=== PATIENT | male | born 1985 | race African-American/Black ===

== ENCOUNTER 2018-02-18 17:37 | Inpatient (IN) ==
[2018-02-18] MEDS ORDERED: Sod Chloride 0.9% Inj 1,000 ML IV.SIG ONE (18:42)
--- NOTE | 2018-02-18 18:46 | ED ---
HPI General Chief complaint: Dental/Oral Stated complaint: Heat Cramp/tooth pain Time Seen by Provider: 02/18/18 18:38 History of Present Illness HPI narrative: 33-year-old male here for evaluation of dental pain/abscess and possible dehydration. The patient noticed the pain and swelling over his right lower molar a couple of days ago. Pain is moderate, constant, worse with palpation. No difficulty swallowing or breathing. He believes he may have had a fever yesterday. 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 He had 2 episodes of vomiting today which were nonbloody/nonbilious. Last bowel movement was yesterday and was normal. No diarrhea. No abdominal pain. Related Data Home Medications Medication Instructions Recorded Confirmed No Known Home Medications 02/18/18 02/18/18 Allergies Allergy/AdvReac Type Severity Reaction Status Date / Time No Known Allergies Allergy Verified 02/18/18 18:12 Review of Systems ROS: all other systems reviewed are negative PMFSH Medical History Medical History Patient denies medical problems (Acute) Surgical History Surgical History No history of previous surgery (Acute) Social History Social History Substance History: No History of Abuse Second Hand Smoke Exposure: Yes Smoking Status: Current every day smoker Tobacco Type: Cigarettes How Often Do You Have a Drink Containing Alcohol: 4 or more times a week Recent Travel in [facility] within the Last 8 Weeks: No Recent Out of Country Travel within the Last 8 Weeks: No Immunization History Tetanus Immunization: <5 Years Exam Narrative Exam Narrative: GENERAL: Well-developed, well-nourished, comfortable, no apparent distress. SKIN: Focused skin assessment warm/dry. HEAD: Atraumatic. Normocephalic. EYES: Pupils equal and round. No scleral icterus. No injection or drainage. ENT: No nasal bleeding or discharge. Mucous membranes pink and dry. Tooth #8 is fractured which the patient states happened several years ago and he is to have a cap for it. Around the base of tooth #35 there is an area of swelling laterally with induration, no fluctuance. Normal pharynx. No drooling or stridor. NECK: Trachea midline. No JVD. CARDIOVASCULAR: Regular rate and rhythm. RESPIRATORY: No accessory muscle use. Clear to auscultation. Breath sounds equal bilaterally. GASTROINTESTINAL: Abdomen soft, non-tender, nondistended. MUSCULOSKELETAL: No obvious deformities. No clubbing. No cyanosis. No edema. NEUROLOGICAL: Awake and alert. No obvious cranial nerve deficits. Motor grossly within normal limits. Normal speech. PSYCHIATRIC: Appropriate mood and affect; insight and judgment normal. Course Initial Documented Vital Signs Temperature 98.7 F 02/18/18 17:41 Pulse Rate 61 02/18/18 17:41 Respiratory Rate 14 02/18/18 17:41 Blood Pressure 161/86 H 02/18/18 17:41 Pulse Oximetry 99 02/18/18 17:41 Last Documented Vital Signs Temperature 98.7 F 02/18/18 17:41 Pulse Rate 61 02/18/18 17:41 Respiratory Rate 14 02/18/18 17:41 Blood Pressure 161/86 H 02/18/18 17:41 Pulse Oximetry 99 02/18/18 17:41 Medical Decision Making MDM Narrative Medical decision making narrative: Vital signs reviewed. CBC is unremarkable. CMP is remarkable for creatinine 1.63. CK-MB is 1684. Patient was provided a liter of normal saline IV bolus. Patient reports working as a truck technician for the past 2 days, and is complaining of feeling dehydrated with generalized muscle cramps. It has been extremely hot these last 2 days. He denies illicit drug use. Denies crack or cocaine use. Patient will be given another liter of normal saline IV bolus and started on normal saline at 125 cc/h. He will be admitted for dehydration/acute renal failure/rhabdomyolysis. He will also be started on IV clindamycin for dental infection. Case discussed with hospitalist Dr. Romo who will admit the patient to her service. Medical Screen Exam Complete: Yes Emergency Medical Condition: Yes Differential Diagnosis Differential Diagnosis: Dehydration, rhabdomyolysis, metabolic abnormality, dental infection Lab Data Result diagrams: 02/18/18 18:46 02/18/18 18:46 Lab Results 02/18/18 02/18/18 02/18/18 Range/Units 18:46 18:46 18:55 WBC 9.8 (4.0-11.0) th/mm3 RBC 5.05 (4.50-5.90) mil/mm3 Hgb 15.3 (13.0-17.0) gm/dL Hct 43.0 (39.0-51.0) % MCV 85.3 (80.0-100.0) fL MCH 30.2 (27.0-34.0) pg MCHC 35.5 (32.0-36.0) % RDW 14.5 (11.6-17.2) % Plt Count 294 (150-450) th/mm3 MPV 7.7 (7.0-11.0) fL Neut % (Auto) 73.7 H (16.0-70.0) % Lymph % (Auto) 12.8 (9.0-44.0) % [place] % (Auto) 12.6 H (0.0-8.0) % Eos % (Auto) 0.2 (0.0-4.0) % Baso % (Auto) 0.7 (0.0-2.0) % Neut # (Auto) 7.2 (1.8-7.7) th/mm3 Lymph # (Auto) 1.3 (1.0-4.8) th/mm3 [place] # (Auto) 1.2 H (0.0-0.9) th/mm3 Eos # (Auto) 0.0 (0.0-0.4) th/mm3 Baso # (Auto) 0.1 (0.0-0.2) th/mm3 WBC Differential . Differential Comment Auto diff final Sodium 135 L (136-145) meq/L Potassium 3.9 (3.5-5.1) meq/L Chloride 102 (98-107) meq/L Carbon Dioxide 21.7 (21.0-32.0) meq/L Anion Gap 11 (5-15) meq/L BUN 14 (7-18) mg/dL Creatinine 1.63 H (0.60-1.30) mg/dL Estimated GFR 59 L (>89) mL/min Random Glucose 78 (74-106) mg/dL Calcium 10.0 (8.5-10.1) mg/dL Total Bilirubin 0.4 (0.2-1.0) mg/dL AST 44 H (15-37) U/L ALT 39 (12-78) U/L Alkaline Phosphatase 97 (45-117) U/L Total Creatine Kinase 1684 H (39-308) U/L CK-MB (CK-2) 3.2 (0.5-3.6) ng/mL CK-MB (CK-2) % 0.2 (0.0-4.0) % Total Protein 9.5 H (6.4-8.2) g/dL Albumin 4.7 (3.4-5.0) g/dL Lipase 129 (73-393) U/L Urine Color Straw (Yellw/Straw) Urine Clarity Clear (Clear) Urine pH 5.0 (5.0-8.5) Ur Specific [place] 1.008 (1.002-1.035) Urine Protein Negative (Neg-Trace) mg/dL Urine Glucose (UA) Negative (Negative) mg/dL Urine Ketones Negative (Negative) mg/dL Urine Occult Blood Small H (Negative) Urine Nitrate Negative (Negative) Urine Bilirubin Negative (Negative) Urine Urobilinogen Less than 2 (Less than 2) mg/dL Ur Leukocyte Esterase Negative (Negative) Urine RBC Less than 1 (0-3) /hpf Urine WBC 7 H (0-5) /hpf Urine Bacteria Rare H (None) /hpf Granular Casts 3 (None) /lpf Urine Mucus Few H (Occasional) /lpf Micro UA Comment Culture not ind Ur Microscopic Review Not Reportable Urine Culture Comments Culture not ind Discharge Plan Discharge Disposition Patient Disposition: 30 Still Patient Discharge Condition Condition: Stable Discharge Details Diagnosis: Rhabdomyolysis, Dental infection Physicians Team ED Provider: Rivera Muro Primary Care Provider: Primary Care Maria Victoria Belle Rxs /Orders / Referrals /Forms Prescriptions: No Action No Known Home Medications RF: 0 Discharge Interventions Interventions: Vital Signs Last Done: 02/18/18 17:41 Status ED Status: With Doctor
[2018-02-18 19:06] LABS: Baso # (Auto) 0.1 th/mm3 (0.0-0.2); Baso % (Auto) 0.7 % (0.0-2.0); Eos % (Auto) 0.2 % (0.0-4.0); Hemoglobin 15.3 gm/dL (13.0-17.0); Lymph # (Auto) 1.3 th/mm3 (1.0-4.8); Lymph % (Auto) 12.8 % (9.0-44.0); Mean Corpuscular HGB Conc 35.5 % (32.0-36.0); Mean Corpuscular Hemoglobin 30.2 pg (27.0-34.0); Mean Corpuscular Volume 85.3 fL (80.0-100.0); Mean Platelet Volume 7.7 fL (7.0-11.0); Mono # (Auto) 1.2 th/mm3 (0.0-0.9); Mono % (Auto) 12.6 % (0.0-8.0); Neut # (Auto) 7.2 th/mm3 (1.8-7.7); Neut % (Auto) 73.7 % (16.0-70.0); Platelet Count 294 th/mm3 (150-450); Red Blood Count 5.05 mil/mm3 (4.50-5.90); Red Cell Distribution Width 14.5 % (11.6-17.2); White Blood Count 9.8 th/mm3 (4.0-11.0)
[2018-02-18 19:28] LABS: Alanine Aminotransferase 39 U/L (12-78); Albumin 4.7 g/dL (3.4-5.0); Anion Gap 11 meq/L (5-15); Aspartate Aminotransferase 44 U/L (15-37); Blood Urea Nitrogen 14 mg/dL (7-18); Carbon Dioxide 21.7 meq/L (21.0-32.0); Chloride 102 meq/L (98-107); Glomerular Filtration Rate 59 mL/min (>89); Glucose,Random 78 mg/dL (74-106); Lipase 129 U/L (73-393); Potassium 3.9 meq/L (3.5-5.1); Sodium 135 meq/L (136-145)
[2018-02-18] MEDS ORDERED: Ketorolac Inj 30 MG/ML (IVP) Vial IV.PUSH ONE (19:40)
[2018-02-18 19:43] LABS: Alkaline Phosphatase 97 U/L (45-117); Creatine Kinase 1684 U/L (39-308); Total Protein 9.5 g/dL (6.4-8.2)
[2018-02-18 20:00] LABS: CKMB Percent 0.2 % (0.0-4.0); Creatine Kinase MB 3.2 ng/mL (0.5-3.6)
[2018-02-18 20:14] LABS: Bacteria,Urine Rare /hpf; Bilirubin,Urine Negative (Negative); Clarity,Urine Clear (Clear); Color,Urine Straw (Yellw/Straw); Glucose,Urine (UA) Negative (Negative); Leukocyte Esterase,Urine Negative (Negative); Mucus,Urine Few /lpf (Occasional); Nitrite,Urine Negative (Negative); Specific Gravity,Urine 1.008 (1.002-1.035)
[2018-02-18] MEDS ORDERED: Sod Chloride 0.9% Inj 1,000 ML IV.SIG SCH (20:15)
[2018-02-18 21:30] LABS: Amphetamine Screen,Urine Neg (Neg); Barbiturate Screen,Urine Neg (Neg); Cannabinoid Screen,Urine Pos (Neg); Cocaine Screen,Urine Pos (Neg)
[2018-02-18] MEDS ORDERED: Bisacodyl 10 MG Supp RECTAL PRN (21:35)
[2018-02-18] MEDS ORDERED: Clindamycin 900 mg/NS Premix 900 MG/50 ML PIGGYBACK IV.SIG SCH (21:45)
[2018-02-18 22:06] LABS: Opiate Screen,Urine Neg (Neg)
--- NOTE | 2018-02-18 22:10 | P.HP ---
History of Present Illness Service: [facility] Primary Care Physician: No Primary Care Physician History of Present Illness: 32-year-old male with a past medical history significant for anxiety/depression presents to the emergency department for evaluation of muscle cramping that began at 10 PM yesterday evening. He also complains of a dental abscess that has been exquisitely painful for the past 2 days. The patient reports the abscess has come and gone in the recent future and he has not yet seen a dentist. The patient works as a finance officer and states that yesterday he was lifting heavy objects approximately all day long. He states he drank a gallon and a half of water yet still feels dehydrated. CPK 1684. The patient denies any fevers or chills. No chest pain or shortness of breath. No dysuria. No abdominal pain. No nausea/vomiting/diarrhea. No lateralizing signs or symptoms. Inpatient Certification: I certify that the inpatient services were ordered in accordance with Medicare regulations governing the order. This includes certification that hospital inpatient services are reasonable and necessary and in the case of services not specified as inpatient-only under 42 CFR 419.22(n), that they are appropriately provided as inpatient services in accordance to with the 2-midnight benchmark under 43 CFR 412.3(e) Estimated Total Length of Stay (Days): 2 Plans for Post Hospital Care: Home Review of Systems All other systems reviewed negative except as stated in HPI [facility] - History History Provided By: Patient - Medical History Medical History: Medical History (Last Reviewed 02/18/18 @ 22:06 by Judy Romo MD) Patient denies medical problems - Surgical History Surgical History: Surgical History (Last Reviewed 02/18/18 @ 22:06 by Judy Romo MD) No history of previous surgery - Family History Family History: Family History (Last Updated 02/18/18 @ 22:06 by Judy Romo MD) Other Diabetes mellitus - Tobacco History Second Hand Smoke Exposure: Yes Tobacco Use In Past 30 Days: Yes Smoking Status: Current every day smoker Tobacco Type: Cigarettes - Alcohol History How Often Do You Have a Drink Containing Alcohol: 4 or more times a week - Substance Use History Substance History: No History of Abuse - Travel History Recent Travel in the [place] Within the Last 8 Weeks: No Recent Travel Out of the Country Within the Last 8 Weeks: No - Immunization History Tetanus Immunization: <5 Years Medications and Allergies Active Medications: Active Medications Acetaminophen (Tylenol) 650 mg PO Q4H PRN PRN Reason: Temp > 100.4/pain Bisacodyl (Dulcolax Supp) 10 mg RECTAL DAILY PRN PRN Reason: SEVERE CONSITIPATION Sodium Chloride (Ns Inj) 1,000 mls @ 125 mls/hr IV.CONT .Q8H TONIE Sodium Chloride (Ns Inj) 1,000 mls @ 0 mls/hr IV.SIG BOLUS TONIE Last Admin: 02/18/18 20:51 Dose: 1,000 mls/hr Clindamycin Phosphate 900 mg/ (Sodium Chloride) 106 mls @ 100 mls/hr IV.SIG Q8H TONIE Last Admin: 02/18/18 20:51 Dose: 100 mls/hr Sodium Chloride (Ns Inj) 1,000 mls @ 150 mls/hr IV.CONT .Q6H40M TONIE Ondansetron HCl (Zofran Inj) 4 mg IV.PUSH Q6H PRN PRN Reason: NAUSEA OR VOMITING Sennosides (Senokot) 17.2 mg PO Q12H PRN PRN Reason: Moderate Constipation Sodium Chloride (Ns Flush) 2 ml IV.FLUSH PRN PRN PRN Reason: FLUSH AFTER USING IV ACCESS Allergies Allergy/AdvReac Type Severity Reaction Status Date / Time No Known Allergies Allergy Verified 02/18/18 18:12 Home Medications Medication Instructions Recorded Confirmed Type No Known Home Medications 02/18/18 02/18/18 History Exam Vital signs: Vital Signs 02/18/18 17:41 Temperature 98.7 F Pulse Rate 61 Respiratory Rate 14 Blood Pressure 161/86 H Pulse Oximetry 99 Intake & Output 02/18/18 02/18/18 02/19/18 06:59 18:59 06:59 Intake Total 1000 / 1000 Balance 1000 / 1000 Weight 65.771 kg Intake: IV 1000 / 1000 NS Inj 1,000 ML @ Wide Open IV. 1000 / 1000 SIG BOLUS ONE Rx#:[id number] Narrative: Gen.: No acute distress Head: Normocephalic. Atraumatic. EENT: Pupils equal round and reactive to light. Nose without drainage. Airway intact. Throat without injection. Small intact abscess on the lower gum on the right side of the mouth. Not draining. Cardiovascular: Regular rate and rhythm. No murmurs, rubs or gallops. Respiratory: Lungs clear to auscultation bilaterally. No wheezes or rhonchi. Abdomen: Soft, nontender, nondistended. No peritoneal signs. Musculoskeletal: No gross deformities. No edema. Skin: No obvious rashes or erythema. Neuro: Sensory and motor grossly intact. Cranial nerves II through XII grossly intact. Results - Labs CBC & Chem 7: 02/18/18 18:46 02/18/18 18:46 Labs: Laboratory Results - last 24 hr 02/18/18 02/18/18 02/18/18 18:46 18:46 18:55 WBC 9.8 RBC 5.05 Hgb 15.3 Hct 43.0 MCV 85.3 MCH 30.2 MCHC 35.5 RDW 14.5 Plt Count 294 MPV 7.7 Neut % (Auto) 73.7 H Lymph % (Auto) 12.8 [place] % (Auto) 12.6 H Eos % (Auto) 0.2 Baso % (Auto) 0.7 Neut # (Auto) 7.2 Lymph # (Auto) 1.3 [place] # (Auto) 1.2 H Eos # (Auto) 0.0 Baso # (Auto) 0.1 WBC Differential . Differential Comment Auto diff final Sodium 135 L Potassium 3.9 Chloride 102 Carbon Dioxide 21.7 Anion Gap 11 BUN 14 Creatinine 1.63 H Estimated GFR 59 L Random Glucose 78 Calcium 10.0 Total Bilirubin 0.4 AST 44 H ALT 39 Alkaline Phosphatase 97 Total Creatine Kinase 1684 H CK-MB (CK-2) 3.2 CK-MB (CK-2) % 0.2 Total Protein 9.5 H Albumin 4.7 Lipase 129 Urine Color Straw Urine Clarity Clear Urine pH 5.0 Ur Specific [place] 1.008 Urine Protein Negative Urine Glucose (UA) Negative Urine Ketones Negative Urine Occult Blood Small H Urine Nitrate Negative Urine Bilirubin Negative Urine Urobilinogen Less than 2 Ur Leukocyte Esterase Negative Urine RBC Less than 1 Urine WBC 7 H Urine Bacteria Rare H Granular Casts 3 Urine Mucus Few H Micro UA Comment Culture not ind Ur Microscopic Review Not Reportable Urine Culture Comments Culture not ind Caprini VTE Risk Assessment Caprini VTE Risk Assessment: No/Low Risk (score <= 1) Caprini Risk Assessment Model: Point Value = 1 Point Value = 2 Point Value = 3 Point Value = 5 Age 41-60 Minor surgery BMI > 25 kg/m2 Swollen legs Varicose veins or History of unexplained or recurrent spontaneous Oral contraceptives or hormone replacement Sepsis (< 1 month) Serious lung disease, including pneumonia (< 1 month) Abnormal pulmonary function Acute myocardial infarction Congestive heart failure (< 1 month) History of inflammatory bowel disease Medical patient at bed rest Age 61-74 Arthroscopic surgery Major open surgery (> 45 min) Laparoscopic surgery (> 45 min) Malignancy Confined to bed (> 72 hours) Immobilizing plaster cast Central venous access Age >= 75 History of VTE Family history of VTE Factor V Leiden Prothrombin [id number] Lupus anticoagulant Anticardiolipin antibodies Elevated serum homocysteine Heparin-induced thrombocytopenia Other congenital or acquired thrombophilia Stroke (< 1 month) Elective arthroplasty Hip, pelvis, or leg fracture Acute spinal cord injury (< 1 month) Prophylaxis Regimen: Total Risk Factor Score Risk Level Prophylaxis Regimen 0-1 Low Early ambulation 2 Moderate Order ONE of the following: *Sequential Compression Device (SCD) *Heparin 5000 units SQ BID 3-4 Higher Order ONE of the following medications: *Heparin 5000 units SQ TID *Enoxaparin/Lovenox 40 mg SQ daily (WT < 150 kg, CrCl > 30 mL/min) *Enoxaparin/Lovenox 30 mg SQ daily (WT < 150 kg, CrCl > 10-29 mL/min) *Enoxaparin/Lovenox 30 mg SQ BID (WT < 150 kg, CrCl > 30 mL/min) AND/OR *Sequential Compression Device (SCD) 5 or more Highest Order ONE of the following medications: *Heparin 5000 units SQ TID (Preferred with Epidurals) *Enoxaparin/Lovenox 40 mg SQ daily (WT < 150 kg, CrCl > 30 mL/min) *Enoxaparin/Lovenox 30 mg SQ daily (WT < 150 kg, CrCl > 10-29 mL/min) *Enoxaparin/Lovenox 30 mg SQ BID (WT < 150 kg, CrCl > 30 mL/min) AND *Sequential Compression Device (SCD) Assessment and Plan - Plan Assessment/plan: 1. Rhabdomyolysis with acute kidney injury IV fluid hydration Monitor renal function 2. Dental abscess Clindamycin Patient will follow up with dentist upon discharge FEN Renal diet NS at 150 cc/hour Electrolytes: Monitor and replete as needed
[2018-02-18] MEDS: Sod Chloride 0.9% Inj 1,000 ML IV.CONT SCH (22:53)
[2018-02-19] MEDS: Sod Chloride 0.9% Inj 1,000 ML IV.CONT SCH ×7 (01:27→17:30)
[2018-02-19 07:46] LABS: Baso # (Auto) 0.1 th/mm3 (0.0-0.2); Eos # (Auto) 0.1 th/mm3 (0.0-0.4); Eos % (Auto) 1.7 % (0.0-4.0); Hematocrit 37.3 % (39.0-51.0); Lymph # (Auto) 1.4 th/mm3 (1.0-4.8); Mean Corpuscular HGB Conc 34.7 % (32.0-36.0); Mean Corpuscular Hemoglobin 29.7 pg (27.0-34.0); Mean Corpuscular Volume 85.6 fL (80.0-100.0); Mean Platelet Volume 7.7 fL (7.0-11.0); Mono # (Auto) 0.9 th/mm3 (0.0-0.9); Mono % (Auto) 16.9 % (0.0-8.0); Neut # (Auto) 2.9 th/mm3 (1.8-7.7); Neut % (Auto) 54.4 % (16.0-70.0); Platelet Count 234 th/mm3 (150-450); Red Blood Count 4.36 mil/mm3 (4.50-5.90); Red Cell Distribution Width 14.1 % (11.6-17.2); White Blood Count 5.3 th/mm3 (4.0-11.0)
[2018-02-19 08:12] LABS: Anion Gap 8 meq/L (5-15); Blood Urea Nitrogen 10 mg/dL (7-18); Calcium 8.4 mg/dL (8.5-10.1); Carbon Dioxide 22.9 meq/L (21.0-32.0); Chloride 111 meq/L (98-107); Glomerular Filtration Rate Greater Than 89 mL/min (>89); Glucose,Random 92 mg/dL (74-106); Potassium 3.9 meq/L (3.5-5.1); Sodium 142 meq/L (136-145)
[2018-02-19 08:28] LABS: Creatine Kinase 1410 U/L (39-308)
[2018-02-19 08:44] LABS: CKMB Percent 0.2 % (0.0-4.0); Creatine Kinase MB 2.2 ng/mL (0.5-3.6)
[2018-02-19] MEDS ORDERED: Sodium Chloride 0.9% 2 ML Flush PRN IV.FLUSH (08:44)
[2018-02-19] MEDS: Sodium Chloride 0.9% 2 ML Flush BID IV.FLUSH SCH ×2 (09:13→20:52)
--- NOTE | 2018-02-19 10:26 | P.PNIM ---
Subjective Interval history: Follow-up with dental abscess, muscle cramping,, rhabdomyolysis anxiety and depression. Patient seen and examined laying in bed, stated he was dehydrated, and have infection in his right lower tooth that was not taking care of. Patient denies any fever or chills, denies any headache or dizziness, denies any nausea or vomiting. Patient stated that he is hungry and has nothing to eat since last night. Wishing to have breakfast this morning. Patient denies any abdominal pain, nausea or vomiting, diarrhea or constipation. Patient denies any chest pain or shortness of breath. Patient admitted smoking 1 pack/ day and smoking weed's once in a while, drinking alcohol 4 pack of beer every day. Counseling given to patient for alcohol abuse. Patient also admitted using cocaine once in a while, counseling and education given, patient verbalized understanding. Physical Exam Vital signs: Vital Signs 02/18/18 17:41 02/19/18 00:00 02/19/18 04:00 Temperature 98.7 F 97.9 F 97.9 F Pulse Rate 61 58 L 48 L Respiratory Rate 14 18 16 Blood Pressure 161/86 H 118/62 121/64 Pulse Oximetry 99 100 97 Intake & Output 02/18/18 02/19/18 02/19/18 18:59 06:59 18:59 Intake Total 210 / 2106 1106 / 1106 Balance 210 / 2105 1106 / 1106 Weight 65.771 kg 65.771 kg Intake: IV 2106 / 2106 1106 / 1106 NS Inj 1,000 ML @ 150 mls/hr IV 1000 / 1000 .CONT .Q6H40M TONIE Rx#:[id number] Cleocin Inj 900 MG In NS Inj 106 / 106 106 / 106 100 ML @ 100 mls/hr IV.SIG Q8H TONIE Rx#:[id number] NS Inj 1,000 ML @ Wide Open IV. 1999 SIG BOLUS TONIE Rx#:[id number] Other: # Voids 2 Narrative: GENERAL: Well-developed, well-nourished, -[place] young male in, in no apparent distress SKIN: Warm and dry. HEAD: Atraumatic. Normocephalic. EYES: Pupils equal and round. No scleral icterus. No injection or drainage. ENT: No nasal bleeding or discharge. Mucous membranes pink and moist. Right lower molar cavity with abscess NECK: Trachea midline. No JVD. CARDIOVASCULAR: Regular rate and rhythm. RESPIRATORY: No accessory muscle use. Clear to auscultation. Breath sounds equal bilaterally. GASTROINTESTINAL: Abdomen round soft, non-tender, nondistended. Hepatic and splenic margins not palpable. MUSCULOSKELETAL: Extremities without clubbing, cyanosis, or edema. No obvious deformities. NEUROLOGICAL: Awake and alert. No obvious cranial nerve deficits. Motor grossly within normal limits. Five out of 5 muscle strength in the arms and legs. Normal speech. PSYCHIATRIC: Appropriate mood and affect; insight and judgment normal. Results - Labs CBC & Chem 7: 02/19/18 06:56 02/19/18 06:56 Laboratory Results - last 24 hr 02/18/18 02/18/18 02/18/18 18:46 18:46 18:55 WBC 9.8 RBC 5.05 Hgb 15.3 Hct 43.0 MCV 85.3 MCH 30.2 MCHC 35.5 RDW 14.5 Plt Count 294 MPV 7.7 Neut % (Auto) 73.7 H Lymph % (Auto) 12.8 [place] % (Auto) 12.6 H Eos % (Auto) 0.2 Baso % (Auto) 0.7 Neut # (Auto) 7.2 Lymph # (Auto) 1.3 [place] # (Auto) 1.2 H Eos # (Auto) 0.0 Baso # (Auto) 0.1 WBC Differential . Differential Comment Auto diff final Sodium 135 L Potassium 3.9 Chloride 102 Carbon Dioxide 21.7 Anion Gap 11 BUN 14 Creatinine 1.63 H Estimated GFR 59 L Random Glucose 78 Calcium 10.0 Total Bilirubin 0.4 AST 44 H ALT 39 Alkaline Phosphatase 97 Total Creatine Kinase 1684 H CK-MB (CK-2) 3.2 CK-MB (CK-2) % 0.2 Total Protein 9.5 H Albumin 4.7 Lipase 129 Urine Color Straw Urine Clarity Clear Urine pH 5.0 Ur Specific [place] 1.008 Urine Protein Negative Urine Glucose (UA) Negative Urine Ketones Negative Urine Occult Blood Small H Urine Nitrate Negative Urine Bilirubin Negative Urine Urobilinogen Less than 2 Ur Leukocyte Esterase Negative Urine RBC Less than 1 Urine WBC 7 H Urine Bacteria Rare H Granular Casts 3 Urine Mucus Few H Micro UA Comment Culture not ind Ur Microscopic Review Not Reportable Urine Culture Comments Culture not ind Urine Opiates Screen Ur Barbiturates Screen Ur Amphetamines Screen U Benzodiazepines Scrn Urine Cocaine Screen U Cannabinoids Screen 02/18/18 02/19/18 02/19/18 20:30 06:56 06:56 WBC 5.3 RBC 4.36 L Hgb 13.0 D Hct 37.3 L MCV 85.6 MCH 29.7 MCHC 34.7 RDW 14.1 Plt Count 234 MPV 7.7 Neut % (Auto) 54.4 Lymph % (Auto) 26.0 [place] % (Auto) 16.9 H Eos % (Auto) 1.7 Baso % (Auto) 1.0 Neut # (Auto) 2.9 Lymph # (Auto) 1.4 [place] # (Auto) 0.9 Eos # (Auto) 0.1 Baso # (Auto) 0.1 WBC Differential . Differential Comment Auto diff final Sodium 142 Potassium 3.9 Chloride 111 H D Carbon Dioxide 22.9 Anion Gap 8 BUN 10 Creatinine 1.07 Estimated GFR Greater than 89 Random Glucose 92 Calcium 8.4 L D Total Bilirubin AST ALT Alkaline Phosphatase Total Creatine Kinase 1410 H CK-MB (CK-2) 2.2 CK-MB (CK-2) % 0.2 Total Protein Albumin Lipase Urine Color Urine Clarity Urine pH Ur Specific [place] Urine Protein Urine Glucose (UA) Urine Ketones Urine Occult Blood Urine Nitrate Urine Bilirubin Urine Urobilinogen Ur Leukocyte Esterase Urine RBC Urine WBC Urine Bacteria Granular Casts Urine Mucus Micro UA Comment Ur Microscopic Review Urine Culture Comments Urine Opiates Screen Neg Ur Barbiturates Screen Neg Ur Amphetamines Screen Neg U Benzodiazepines Scrn Neg Urine Cocaine Screen Pos H U Cannabinoids Screen Pos H Assessment and Plan - Assessment (1) Cocaine abuse Code(s): F14.10 - Cocaine abuse, uncomplicated Status: Acute (2) Synthetic cannabinoid abuse Code(s): F19.10 - Other psychoactive substance abuse, uncomplicated Status: Acute (3) Rhabdomyolysis Code(s): M62.82 - Rhabdomyolysis Status: Acute (4) Dental infection Code(s): K04.7 - Periapical abscess without sinus Status: Acute - Plan This is a 32 years old -[place] young male who presented to the emergency room for muscle cramping, and dental abscess found to have with/AKA/ rhabdomyolysis, with past medical history of significant anxiety and depression. Rhabdomyolysis with acute kidney injury CK 1684 on admission ,improving 1410 today -IV fluid hydration -Monitor renal function, CK Dental abscess -Continue antibiotic treatment with clindamycin -As needed Tylenol for pain -Patient to follow-up with dentist upon discharge History of anxiety and depression -Monitor mental status Cocaine abuse/cannabinoids abuse Counseling given DVT prophylaxis: Patient ambulatory Code Status: full code Discussed Condition With: patient and nurse Discharge Planning: Plan to DC 1-2 days when CK stabilize (3) Rhabdomyolysis Qualifiers: Rhabdomyolysis type: non-traumatic Qualified Code(s): M62.82 - Rhabdomyolysis
[2018-02-19] MEDS: Acetaminophen 325 MG Tablet PO PRN (10:46)
[2018-02-19] MEDS ORDERED: Influenza (Quadrivalent) Vaccine 0.5 ML Syringe IM ONE (15:00)
[2018-02-20] MEDS: Sod Chloride 0.9% Inj 1,000 ML IV.CONT SCH ×4 (00:20→20:07)
[2018-02-20 07:36] LABS: Baso # (Auto) 0.1 th/mm3 (0.0-0.2); Baso % (Auto) 1.2 % (0.0-2.0); Eos # (Auto) 0.1 th/mm3 (0.0-0.4); Eos % (Auto) 2.2 % (0.0-4.0); Hematocrit 41.5 % (39.0-51.0); Hemoglobin 13.5 gm/dL (13.0-17.0); Lymph # (Auto) 1.4 th/mm3 (1.0-4.8); Lymph % (Auto) 27.5 % (9.0-44.0); Mean Corpuscular HGB Conc 32.4 % (32.0-36.0); Mean Corpuscular Hemoglobin 28.4 pg (27.0-34.0); Mean Corpuscular Volume 87.7 fL (80.0-100.0); Mono # (Auto) 0.8 th/mm3 (0.0-0.9); Mono % (Auto) 15.1 % (0.0-8.0); Neut # (Auto) 2.8 th/mm3 (1.8-7.7); Platelet Count 254 th/mm3 (150-450); Red Blood Count 4.73 mil/mm3 (4.50-5.90); Red Cell Distribution Width 14.7 % (11.6-17.2); White Blood Count 5.2 th/mm3 (4.0-11.0)
[2018-02-20 08:00] LABS: Anion Gap 8 meq/L (5-15); Blood Urea Nitrogen 7 mg/dL (7-18); Calcium 8.5 mg/dL (8.5-10.1); Chloride 106 meq/L (98-107); Glomerular Filtration Rate Greater Than 89 mL/min (>89); Glucose,Random 90 mg/dL (74-106); Potassium 3.9 meq/L (3.5-5.1); Sodium 139 meq/L (136-145)
[2018-02-20] MEDS: Sodium Chloride 0.9% 2 ML Flush BID IV.FLUSH SCH ×2 (08:04→20:10)
[2018-02-20 08:16] LABS: Creatine Kinase 1691 U/L (39-308)
[2018-02-20 08:34] LABS: CKMB Percent 0.1 % (0.0-4.0); Creatine Kinase MB 1.3 ng/mL (0.5-3.6)
[2018-02-20] MEDS: Acetaminophen 325 MG Tablet PO PRN ×2 (08:41→19:36)
--- NOTE | 2018-02-20 09:37 | P.PNIM ---
Subjective Interval history: Follow-up with rhabdomyolysis, muscle cramping, dental abscess, anxiety and depression. Patient seen and examined, sitting in the bed eating breakfast. Patient stated he is feeling better, discussed his muscles lower cramping when he first came here, and today he did not denies any muscle pain or discomfort. Patient denies any headache, chest pain, shortness of breath or any kind of pain.. Patient denies any abdominal pain, nausea, vomiting, diarrhea or constipation. Patient denies any fever or chills. 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 Patient reminded to increase the fluid intake. Patient also stated that he will get away from drug activities now that he knows the effect of it from the education given yesterday, reinforced cessation and cannabis and cocaine use. Patient verbalized understanding, was happy and thankful for the information. Patient stated he did not realize the effect of it. Physical Exam Vital signs: Vital Signs 02/19/18 12:00 02/19/18 16:00 02/19/18 20:00 Temperature 97.7 F 97.9 F 97.9 F Pulse Rate 48 L 47 L 65 Respiratory Rate 18 19 19 Blood Pressure 139/89 141/92 H 146/94 H Pulse Oximetry 99 100 100 02/20/18 00:00 02/20/18 04:00 02/20/18 06:56 Temperature 97.8 F 98.1 F Pulse Rate 48 L Respiratory Rate 18 18 12 Blood Pressure 140/85 138/74 Pulse Oximetry 100 99 Intake & Output 02/19/18 02/20/18 02/20/18 18:59 06:59 18:59 Intake Total 3212 / 3212 1212 / 1212 1000 / 1000 Balance 3212 / 3212 1212 / 1212 1000 / 1000 Weight 62.9 kg Intake: IV 2212 / 2212 1212 / 1212 1000 / 1000 NS Inj 1,000 ML @ 150 mls/hr IV 1999 / 1999 1000 / 1000 1000 / 1000 .CONT .Q6H40M [facility] Rx#:[id number] Cleocin Inj 900 MG In NS Inj 212 / 212 212 / 212 100 ML @ 100 mls/hr IV.SIG Q8H [facility] Rx#:[id number] Oral 1000 / 1000 Other: # Voids 5 4 2 Date of Last Bowel Movement 02/16/18 02/16/18 02/19/18 # Bowel Movements 2 Narrative: GENERAL: Well-developed, well-nourished, -[place]i young male in, in no apparent distress SKIN: Warm and dry. HEAD: Atraumatic. Normocephalic. EYES: Pupils equal and round. No scleral icterus. No injection or drainage. ENT: No nasal bleeding or discharge. Mucous membranes pink and moist. Right lower molar cavity with abscess NECK: Trachea midline. No JVD. CARDIOVASCULAR: Regular rate and rhythm. RESPIRATORY: No accessory muscle use. Clear to auscultation. Breath sounds equal bilaterally. GASTROINTESTINAL: Abdomen round soft, non-tender, nondistended. Hepatic and splenic margins not palpable. MUSCULOSKELETAL: Extremities without clubbing, cyanosis, or edema. No obvious deformities. NEUROLOGICAL: Awake and alert. No obvious cranial nerve deficits. Motor grossly within normal limits. Five out of 5 muscle strength in the arms and legs. Normal speech. PSYCHIATRIC: Appropriate mood and affect; insight and judgment normal. Results - Labs CBC & Chem 7: 02/20/18 06:40 02/20/18 06:40 Laboratory Results - last 24 hr 02/20/18 02/20/18 06:40 06:40 WBC 5.2 RBC 4.73 Hgb 13.5 Hct 41.5 MCV 87.7 MCH 28.4 MCHC 32.4 RDW 14.7 Plt Count 254 MPV 8.0 Neut % (Auto) 54.0 Lymph % (Auto) 27.5 Gulf % (Auto) 15.1 H Eos % (Auto) 2.2 Baso % (Auto) 1.2 Neut # (Auto) 2.8 Lymph # (Auto) 1.4 Gulf # (Auto) 0.8 Eos # (Auto) 0.1 Baso # (Auto) 0.1 WBC Differential . Differential Comment Auto diff final Sodium 139 Potassium 3.9 Chloride 106 Carbon Dioxide 25.0 Anion Gap 8 BUN 7 Creatinine 1.02 Estimated GFR Greater than 89 Random Glucose 90 Calcium 8.5 Total Creatine Kinase 1691 H CK-MB (CK-2) 1.3 CK-MB (CK-2) % 0.1 Assessment and Plan - Assessment (1) Cocaine abuse Code(s): F14.10 - Cocaine abuse, uncomplicated Status: Acute (2) Synthetic cannabinoid abuse Code(s): F19.10 - Other psychoactive substance abuse, uncomplicated Status: Acute (3) Rhabdomyolysis Code(s): M62.82 - Rhabdomyolysis Status: Acute (4) Dental infection Code(s): K04.7 - Periapical abscess without sinus Status: Acute - Plan This is a 32 years old -[place] young male who presented to the emergency room for muscle cramping, and dental abscess found to have with/AKA/ rhabdomyolysis, with past medical history of significant anxiety and depression. Rhabdomyolysis with acute kidney injury CK 1684 on admission ,improving 1410 on 02/19, today still 1691 -Continue IV fluid hydration, encourage increase fluid intake -Monitor renal function, and CK Dental abscess -Continue antibiotic treatment with clindamycin -As needed Tylenol for pain -Patient to follow-up with dentist upon discharge patient stated plan to go to [facility] after discharge, patient stated he have insurance from the [place]. History of anxiety and depression -Stable -Monitor mental status Cocaine abuse/cannabinoids abuse -Reinforced education on cessation/counseling given DVT prophylaxis: Patient ambulatory Code Status: Full code Discussed Condition With: Patient and nurse Discharge Planning: Plan to DC 1-2 days when CK stabilize (3) Rhabdomyolysis Qualifiers: Rhabdomyolysis type: non-traumatic Qualified Code(s): M62.82 - Rhabdomyolysis
[2018-02-20] MEDS: Clindamycin 900 mg/NS Premix 900 MG/50 ML PIGGYBACK IV.SIG SCH (20:05)
[2018-02-21] MEDS: Sod Chloride 0.9% Inj 1,000 ML IV.CONT SCH ×4 (02:40→22:11)
[2018-02-21] MEDS: Clindamycin 900 mg/NS Premix 900 MG/50 ML PIGGYBACK IV.SIG SCH ×3 (05:05→22:03)
[2018-02-21] MEDS: Sodium Chloride 0.9% 2 ML Flush BID IV.FLUSH SCH ×2 (08:04→22:03)
--- NOTE | 2018-02-21 11:29 | P.PNIM ---
Subjective Interval history: Follow-up with rhabdomyolysis, muscle cramping, dental abscess, anxiety and depression. Patient seen and examined sitting in the bed, stated he is feeling better. Denies any muscle cramping, denies any muscle pain, or any discomfort. Talked to the over the phone and answer questions. Patient encouraged to increase fluid intake. However patient still still getting the IV fluid. Discussed the patient recheck lab works. Patient denies any headache or dizziness, denies any pain, chest pain or shortness of breath. Patient denies any abdominal pain, nausea, vomiting, diarrhea. Patient complains of some constipation and might need stool softener. Patient denies any fever or chills. Physical Exam Vital signs: Vital Signs 02/20/18 12:00 02/20/18 16:00 02/20/18 20:00 Temperature 98.1 F 98.3 F 98.3 F Pulse Rate 50 L 50 L 54 L Respiratory Rate 20 20 20 Blood Pressure 127/62 143/88 H 145/85 H Pulse Oximetry 99 99 99 02/20/18 20:07 02/21/18 00:00 02/21/18 04:00 Temperature 98.1 F 97.7 F Pulse Rate 49 L 50 L Respiratory Rate 20 20 20 Blood Pressure 151/74 H 155/67 H Pulse Oximetry 97 99 02/21/18 07:00 02/21/18 08:00 Temperature 98.2 F Pulse Rate 50 L Respiratory Rate 12 18 Blood Pressure 130/76 Pulse Oximetry 99 Intake & Output 02/20/18 02/21/18 02/21/18 18:59 06:59 18:59 Intake Total 2466 / 2466 2542 / 2542 1480 / 1480 Output Total 775 / 775 Balance 2466 / 2466 2542 / 2542 705 / 705 Weight 63.2 kg Intake: IV 2106 / 2106 2100 / 2100 1000 / 1000 NS Inj 1,000 ML @ 150 mls/hr IV 1999 / 1999 1999 / 1999 1000 / 1000 .CONT .Q6H40M [facility] Rx#:[id number] Cleocin 900 mg/NS Premix 900 mg 100 / 100 In 50 ml @ 100 mls/hr IV.SIG Q8H [facility] Rx#:[id number] Cleocin Inj 900 MG In NS Inj 106 / 106 100 ML @ 100 mls/hr IV.SIG Q8H [facility] Rx#:[id number] Oral 360 / 360 442 / 442 480 / 480 Output: Urine 775 / 775 Other: # Voids 2 6 Date of Last Bowel Movement 02/19/18 02/21/18 02/19/18 # Bowel Movements 2 1 Narrative: GENERAL: Well-developed, well-nourished, -Aust[place] young male, in no apparent distress SKIN: Warm and dry. HEAD: Atraumatic. Normocephalic. EYES: Pupils equal and round. No scleral icterus. No injection or drainage. ENT: No nasal bleeding or discharge. Mucous membranes pink and moist. Right lower molar cavity with abscess NECK: Trachea midline. No JVD. CARDIOVASCULAR: Regular rate and rhythm. RESPIRATORY: No accessory muscle use. Clear to auscultation. Breath sounds equal bilaterally. GASTROINTESTINAL: Abdomen round soft, non-tender, nondistended. Hepatic and splenic margins not palpable. MUSCULOSKELETAL: Extremities without clubbing, cyanosis, or edema. No obvious deformities. NEUROLOGICAL: Awake and alert. No obvious cranial nerve deficits. Motor grossly within normal limits. Five out of 5 muscle strength in the arms and legs. Normal speech. PSYCHIATRIC: Appropriate mood and affect; insight and judgment normal. Results - Labs CBC & Chem 7: 02/20/18 06:40 02/20/18 06:40 Assessment and Plan - Assessment (1) Cocaine abuse Code(s): F14.10 - Cocaine abuse, uncomplicated Status: Acute (2) Synthetic cannabinoid abuse Code(s): F19.10 - Other psychoactive substance abuse, uncomplicated Status: Acute (3) Rhabdomyolysis Code(s): M62.82 - Rhabdomyolysis Status: Acute (4) Dental infection Code(s): K04.7 - Periapical abscess without sinus Status: Acute - Plan This is a 32 years old -Aust[place] young male who presented to the emergency room for muscle cramping, and dental abscess found to have with/AKA/ rhabdomyolysis, with past medical history of significant anxiety and depression. Rhabdomyolysis with acute kidney injury CK 1684 on admission ,improving 1476 today -Continue IV fluid hydration, encourage increase fluid intake -Monitor renal function, and CK -Recheck CK awaiting for result -patient denies any muscle pain or discomfort Dental abscess -Continue antibiotic treatment with clindamycin -As needed Tylenol for pain -Patient to follow-up with dentist upon discharge patient stated plan to go to [facility] after discharge, patient stated [facility] have [facility] from [facility]. History of anxiety and depression -Stable -Monitor mental status Cocaine abuse/cannabinoids abuse -Reinforced education on cessation/counseling given DVT prophylaxis: Patient ambulatory Code Status: Full code Discussed Condition With: Patient, family, and nurse Discharge Planning: Plan to DC 1-2 days when CK stabilize (3) Rhabdomyolysis Qualifiers: Rhabdomyolysis type: non-traumatic Qualified Code(s): M62.82 - Rhabdomyolysis
[2018-02-21 12:21] LABS: Creatine Kinase 1476 U/L (39-308)
[2018-02-21 12:56] LABS: CKMB Percent 0.1 % (0.0-4.0)
[2018-02-22] MEDS: Clindamycin 900 mg/NS Premix 900 MG/50 ML PIGGYBACK IV.SIG SCH ×3 (04:34→21:08)
[2018-02-22] MEDS: Sod Chloride 0.9% Inj 1,000 ML IV.CONT SCH ×4 (04:35→17:57)
[2018-02-22] MEDS: Sodium Chloride 0.9% 2 ML Flush BID IV.FLUSH SCH ×2 (08:59→21:14)
--- NOTE | 2018-02-22 10:04 | P.PNIM ---
Subjective Interval history: Follow-up with rhabdomyolysis, muscle cramping, dental abscess, anxiety and depression. Patient seen and examined laying in bed, family at bedside. Patient denies any pain or shortness of breath at this time however stated last night he had some muscle cramps. Discussed lab results and fluid replacements. Patient denies any headache or dizziness, denies any pain, chest pain, shortness of breath. Patient denies any abdominal pain, nausea, vomiting, diarrhea or constipation. Patient denies any fever or chills. Answers families question. Physical Exam Vital signs: Vital Signs 02/21/18 12:00 02/21/18 16:00 02/21/18 20:00 Temperature 98.1 F 98.4 F 97.7 F Pulse Rate 52 L 52 L 50 L Respiratory Rate 19 Blood Pressure 155/81 H 153/89 H 152/86 H Pulse Oximetry 100 100 98 02/22/18 00:00 02/22/18 04:00 02/22/18 08:00 Temperature 97.6 F 97.7 F 98.0 F Pulse Rate 47 L 41 L 50 L Respiratory Rate Blood Pressure 148/89 H 131/74 146/67 H Pulse Oximetry 99 98 99 Intake & Output 02/21/18 02/22/18 02/22/18 18:59 06:59 18:59 Intake Total 2770 / 2770 2321 / 2321 Output Total 1475 / 1475 Balance 1295 / 1295 2321 / 2321 Weight 62.6 kg Intake: IV 2049 / 2049 2099 / 2100 NS Inj 1,000 ML @ 150 mls/hr IV 1999 .CONT .Q6H40M [facility] Rx#:[id number] Cleocin 900 mg/NS Premix 900 mg 50 / 50 100 / 100 In 50 ml @ 100 mls/hr IV.SIG Q8H [facility] Rx#:[id number] Oral 720 / 720 221 / 221 Output: Urine 1475 / 1475 Other: Date of Last Bowel Movement 02/19/18 02/20/18 02/22/18 Narrative: GENERAL: Well-developed, well-nourished, -[place] young male, in no apparent distress SKIN: Warm and dry. HEAD: Atraumatic. Normocephalic. EYES: Pupils equal and round. No scleral icterus. No injection or drainage. ENT: No nasal bleeding or discharge. Mucous membranes pink and moist. Right lower molar cavity with abscess NECK: Trachea midline. No JVD. CARDIOVASCULAR: Regular rate and rhythm. RESPIRATORY: No accessory muscle use. Clear to auscultation. Breath sounds equal bilaterally. GASTROINTESTINAL: Abdomen round soft, non-tender, nondistended. Hepatic and splenic margins not palpable. MUSCULOSKELETAL: Extremities without clubbing, cyanosis, or edema. No obvious deformities. NEUROLOGICAL: Awake and alert. No obvious cranial nerve deficits. Motor grossly within normal limits. Five out of 5 muscle strength in the arms and legs. Normal speech. PSYCHIATRIC: Appropriate mood and affect; insight and judgment normal. Results - Labs CBC & Chem 7: 02/20/18 06:40 02/20/18 06:40 Laboratory Results - last 24 hr 02/21/18 10:49 Total Creatine Kinase 1476 H CK-MB (CK-2) Less than 1.0 CK-MB (CK-2) % 0.1 Assessment and Plan - Assessment (1) Cocaine abuse Code(s): F14.10 - Cocaine abuse, uncomplicated Status: Acute (2) Synthetic cannabinoid abuse Code(s): F19.10 - Other psychoactive substance abuse, uncomplicated Status: Acute (3) Rhabdomyolysis Code(s): M62.82 - Rhabdomyolysis Status: Acute (4) Dental infection Code(s): K04.7 - Periapical abscess without sinus Status: Acute - Plan This is a 32 years old -[place] young male who presented to the emergency room for muscle cramping, and dental abscess found to have with/AKA/ rhabdomyolysis, with past medical history of significant anxiety and depression. Rhabdomyolysis with acute kidney injury CK 1684 on admission ,improving 1142 today -Continue IV fluid hydration, encourage increase fluid intake -Monitor renal function, and CK -Recheck CK awaiting for result -Slight muscle pain last night none today - Give 1 L bolus today, check ck in am Dental abscess -Continue antibiotic treatment with clindamycin -As needed Tylenol for pain -Patient to follow-up with dentist upon discharge patient stated plan to go to [facility] after discharge, patient stated he have insurance from the [place]. -Oral hygiene, brush and mouthwash History of anxiety and depression -Stable -Monitor mental status Cocaine abuse/cannabinoids abuse -Reinforced education on cessation/counseling given DVT prophylaxis: Patient ambulatory Code Status: Full code Discussed Condition With: Patient, family, and nurse Discharge Planning: Plan to DC 1-2 days when CK stabilize (3) Rhabdomyolysis Qualifiers: Rhabdomyolysis type: non-traumatic Qualified Code(s): M62.82 - Rhabdomyolysis
[2018-02-22 12:19] LABS: Creatine Kinase 1142 U/L (39-308)
[2018-02-22 12:39] LABS: CKMB Percent 0.1 % (0.0-4.0)
[2018-02-22] MEDS ORDERED: Sod Chloride 0.9% Inj 1,000 ML IV.SIG ONE (14:13)
[2018-02-23] MEDS: Sod Chloride 0.9% Inj 1,000 ML IV.CONT SCH ×5 (00:07→20:41)
[2018-02-23] MEDS: Clindamycin 900 mg/NS Premix 900 MG/50 ML PIGGYBACK IV.SIG SCH ×3 (05:52→20:42)
--- NOTE | 2018-02-23 09:30 | P.PNIM ---
Subjective Interval history: Follow-up with rhabdomyolysis, muscle cramping, dental abscess, anxiety and depression. Patient seen and examined, laying in bed, awake alert and oriented x3, family/ in. Patient stated he is doing well, received IV fluid bolus last night and scared him a little bit. Patient explained that he needed a bolus for the rhabdomyolysis. We will check blood work today in the morning, was not drawn yet per patient. Patient denies any headache, pain, chest pain, or shortness of breath. Patient denies any abdominal pain, nausea, vomiting, diarrhea. Patient stated he is a little bit constipated went yesterday after the stool softener discuss to schedule patient agreed. Patient denies any muscle pain, cramps, denies any fever or chills. Physical Exam Vital signs: Vital Signs 02/22/18 12:00 02/22/18 16:00 02/22/18 20:00 Temperature 97.8 F 97.8 F 98.0 F Pulse Rate 48 L 46 L 53 L Respiratory Rate 19 19 20 Blood Pressure 154/89 H 141/82 H 127/75 Pulse Oximetry 96 100 99 02/23/18 00:00 02/23/18 04:00 Temperature 97.8 F 97.6 F Pulse Rate 60 62 Respiratory Rate 18 20 Blood Pressure 126/78 143/80 H Pulse Oximetry 100 100 Intake & Output 02/22/18 02/23/18 02/23/18 18:59 06:59 18:59 Intake Total 1050 / 1050 2100 / 2100 Output Total 425 / 425 Balance 1050 / 1050 1675 / 1675 Weight 64.3 kg Intake: IV 1050 / 1050 2100 / 2100 NS Inj 1,000 ML @ 150 mls/hr IV 1999 / 1999 .CONT .Q6H40M [facility] Rx#:[id number] Cleocin 900 mg/NS Premix 900 mg 50 / 50 100 / 100 In 50 ml @ 100 mls/hr IV.SIG Q8H [facility] Rx#:[id number] NS Inj 1,000 ML @ Wide Open IV. 1000 / 1000 SIG BOLUS ONE Rx#:[id number] Output: Urine 425 / 425 Other: # Voids 4 Date of Last Bowel Movement 02/22/18 02/23/18 # Bowel Movements 1 1 Narrative: GENERAL: Well-developed, well-nourished, -[place]and[place] young male, in no apparent distress SKIN: Warm and dry. HEAD: Atraumatic. Normocephalic. EYES: Pupils equal and round. No scleral icterus. No injection or drainage. ENT: No nasal bleeding or discharge. Mucous membranes pink and moist. Right lower molar cavity with abscess NECK: Trachea midline. No JVD. CARDIOVASCULAR: Regular rate and rhythm. RESPIRATORY: No accessory muscle use. Clear to auscultation. Breath sounds equal bilaterally. GASTROINTESTINAL: Abdomen round soft, non-tender, nondistended. Hepatic and splenic margins not palpable. MUSCULOSKELETAL: Extremities without clubbing, cyanosis, or edema. No obvious deformities. NEUROLOGICAL: Awake and alert. No obvious cranial nerve deficits. Motor grossly within normal limits. Five out of 5 muscle strength in the arms and legs. Normal speech. PSYCHIATRIC: Appropriate mood and affect; insight and judgment normal. Results - Labs CBC & Chem 7: 02/20/18 06:40 02/23/18 09:54 Laboratory Results - last 24 hr 02/22/18 11:14 Total Creatine Kinase 1142 H CK-MB (CK-2) Less than 1.0 CK-MB (CK-2) % 0.1 Assessment and Plan - Assessment (1) Cocaine abuse Code(s): F14.10 - Cocaine abuse, uncomplicated Status: Acute (2) Synthetic cannabinoid abuse Code(s): F19.10 - Other psychoactive substance abuse, uncomplicated Status: Acute (3) Rhabdomyolysis Code(s): M62.82 - Rhabdomyolysis Status: Acute (4) Dental infection Code(s): K04.7 - Periapical abscess without sinus Status: Acute - Plan This is a 32 years old -[place]and[place] young male who presented to the emergency room for muscle cramping, and dental abscess found to have with/AKA/ rhabdomyolysis, with past medical history of significant anxiety and depression. Rhabdomyolysis with acute kidney injury CK 1684 on admission ,improving 775 today -Continue IV fluid hydration, encourage increase fluid intake -Monitor renal function, and CK -Recheck CK awaiting for result -Slight muscle pain last night none today - Given 1 L bolus yesterday, -monitor CK, Plan to discharge when CK<600 and no symptoms/muscle pain Dental abscess -Continue antibiotic treatment with clindamycin -As needed Tylenol for pain -Patient to follow-up with dentist upon discharge patient stated plan to go to [facility] after discharge, patient stated [facility]. -Oral hygiene, brush and mouthwash History of anxiety and depression -Stable -Not on any medication at home -Monitor mental status Cocaine abuse/cannabinoids abuse -Reinforced education on cessation/counseling given DVT prophylaxis: Patient ambulatory Code Status: Full code Discussed Condition With: Patient, family/ and nurse Discharge Planning: Plan to DC 1-2 days when CK stabilize (3) Rhabdomyolysis Qualifiers: Rhabdomyolysis type: non-traumatic Qualified Code(s): M62.82 - Rhabdomyolysis
[2018-02-23] MEDS: Sodium Chloride 0.9% 2 ML Flush BID IV.FLUSH SCH (10:42)
[2018-02-23 11:42] LABS: Albumin 3.5 g/dL (3.4-5.0); Anion Gap 8 meq/L (5-15); Blood Urea Nitrogen 8 mg/dL (7-18); Calcium 8.9 mg/dL (8.5-10.1); Carbon Dioxide 25.7 meq/L (21.0-32.0); Chloride 105 meq/L (98-107); Glomerular Filtration Rate Greater Than 89 mL/min (>89); Glucose,Random 87 mg/dL (74-106); Potassium 3.9 meq/L (3.5-5.1); Sodium 139 meq/L (136-145)
[2018-02-23 11:43] LABS: Alanine Aminotransferase 34 U/L (12-78); Aspartate Aminotransferase 31 U/L (15-37)
[2018-02-23 11:46] LABS: Alkaline Phosphatase 70 U/L (45-117); Creatine Kinase 775 U/L (39-308); Total Protein 7.4 g/dL (6.4-8.2)
[2018-02-23 12:12] LABS: CKMB Percent 0.1 % (0.0-4.0)
[2018-02-24] MEDS: Clindamycin 900 mg/NS Premix 900 MG/50 ML PIGGYBACK IV.SIG SCH ×2 (04:01→13:23)
[2018-02-24] MEDS: Sod Chloride 0.9% Inj 1,000 ML IV.CONT SCH ×2 (04:01→12:39)
[2018-02-24] MEDS: Sodium Chloride 0.9% 2 ML Flush BID IV.FLUSH SCH ×2 (04:04→08:45)
[2018-02-24 10:06] LABS: Creatine Kinase 486 U/L (39-308)
[2018-02-24 10:27] LABS: CKMB Percent 0.2 % (0.0-4.0)
[2018-02-24 11:40] VITALS: PULSE 53; TEMP 98; O2SAT 100
--- NOTE | 2018-02-24 12:22 | P.PNIM ---
Subjective Interval history: Follow-up with rhabdomyolysis, muscle cramping, dental abscess, anxiety and depression. Patient seen and examined, sitting in the bed eating breakfast, stated feeling better. Patient denies any pain, chest pain, or shortness of breath. Patient denies any muscle pain, or any muscle discomfort. Patient stated eating well and drinking well, denies any abdominal pain, nausea, vomiting, diarrhea or constipation. Patient denies any fever or chills. Discussed waiting for the lab results. Physical Exam Vital signs: Vital Signs 02/23/18 16:00 02/23/18 20:00 02/24/18 00:00 Temperature 98.0 F 97.9 F 97.7 F Pulse Rate 53 L 60 62 Respiratory Rate 20 20 20 Blood Pressure 152/88 H 155/81 H 138/78 Pulse Oximetry 97 98 99 02/24/18 04:00 02/24/18 08:00 Temperature 97.7 F 98.0 F Pulse Rate 55 L 53 L Respiratory Rate 20 20 Blood Pressure 131/88 125/70 Pulse Oximetry 98 100 Intake & Output 02/23/18 02/24/18 02/24/18 18:59 06:59 18:59 Intake Total 1410 / 1410 2100 / 2100 Output Total 675 / 675 450 / 450 Balance 735 / 735 1650 / 1650 Weight 64.3 kg Intake: IV 1050 / 1050 2099 / 2100 NS Inj 1,000 ML @ 150 mls/hr IV 1000 / 1000 1999 / 1999 .CONT .Q6H40M [facility] Rx#:[id number] Cleocin 900 mg/NS Premix 900 mg 50 / 50 100 / 100 In 50 ml @ 100 mls/hr IV.SIG Q8H [facility]ONIE Rx#:[id number] Oral 360 / 360 Output: Urine 675 / 675 450 / 450 Other: # Voids 2 Date of Last Bowel Movement 02/22/18 02/24/18 # Bowel Movements 1 Narrative: GENERAL: Well-developed, well-nourished, -Iranian young male, in no apparent distress SKIN: Warm and dry. HEAD: Atraumatic. Normocephalic. EYES: Pupils equal and round. No scleral icterus. No injection or drainage. ENT: No nasal bleeding or discharge. Mucous membranes pink and moist. Right lower molar cavity with abscess NECK: Trachea midline. No JVD. CARDIOVASCULAR: Regular rate and rhythm. RESPIRATORY: No accessory muscle use. Clear to auscultation. Breath sounds equal bilaterally. GASTROINTESTINAL: Abdomen round soft, non-tender, nondistended. Hepatic and splenic margins not palpable. MUSCULOSKELETAL: Extremities without clubbing, cyanosis, or edema. No obvious deformities. NEUROLOGICAL: Awake and alert. No obvious cranial nerve deficits. Motor grossly within normal limits. Five out of 5 muscle strength in the arms and legs. Normal speech. PSYCHIATRIC: Appropriate mood and affect; insight and judgment normal. Results - Labs CBC & Chem 7: 02/20/18 06:40 02/23/18 09:54 Laboratory Results - last 24 hr 02/24/18 07:25 Total Creatine Kinase 486 H CK-MB (CK-2) Less than 1.0 CK-MB (CK-2) % 0.2 Assessment and Plan - Assessment (1) Cocaine abuse Code(s): F14.10 - Cocaine abuse, uncomplicated Status: Acute (2) Synthetic cannabinoid abuse Code(s): F19.10 - Other psychoactive substance abuse, uncomplicated Status: Acute (3) Rhabdomyolysis Code(s): M62.82 - Rhabdomyolysis Status: Acute (4) Dental infection Code(s): K04.7 - Periapical abscess without sinus Status: Acute - Plan This is a 32 years old -Iranian young male who presented to the emergency room for muscle cramping, and dental abscess found to have with/AKA/ rhabdomyolysis, with past medical history of significant anxiety and depression. Rhabdomyolysis with acute kidney injury CK 1684 on admission ,improving 486 today -Continue IV fluid hydration, encourage increase fluid intake -Monitor renal function, and CK -Recheck CK awaiting for result -Slight muscle pain last night none today - Given 1 L bolus on 02/22/2018 -monitor CK, Plan to discharge when CK<400 and no symptoms/muscle pain Dental abscess -Continue antibiotic treatment with clindamycin -As needed Tylenol for pain -Patient to follow-up with dentist upon discharge patient stated plan to go to [facility] after discharge, patient stated he have insurance from the [place]. -Oral hygiene, brush and mouthwash History of anxiety and depression -Stable -Not on any medication at home -Monitor mental status Cocaine abuse/cannabinoids abuse -Reinforced education on cessation/counseling given DVT prophylaxis: Patient ambulatory Code Status: Full code Discussed Condition With: Patient and nurse Discharge Planning: Plan to DC 1-2 days when CK stabilize less than 400 (3) Rhabdomyolysis Qualifiers: Rhabdomyolysis type: non-traumatic Qualified Code(s): M62.82 - Rhabdomyolysis
[2018-02-24 15:23] VITALS: BP 139/77; RESP 18
== END 2018-02-24 17:51 | disposition left against medical advice (07) ==
LOC: NEPD 17:37 → NEDA 20:22 → N05 23:40
PROVIDERS: ADMIT Family Medicine; ATTEND Family Medicine